=== PATIENT | male | born 1985 | race Caucasian/White ===

== ENCOUNTER 2017-09-28 12:45 | Emergency (ER) | payer MEDICAID, SELFPAY ==
[2017-09-28 12:46] VITALS: BP 135/99; PULSE 119; RESP 18; TEMP 36.4; O2SAT 95; BMI 25.4
--- NOTE | 2017-09-28 12:52 | ED.VISSUMM ---
- ER Visit Summary Date of Service: 09/28/17 Chief Complaint: Finger laceration History of Present Illness: The patient is a 32 M presents to the emergency department with right index finger laceration. Patient was fishing and using a filet knife to clean the fish. He cut his index finger. He states he had immediate pain and bleeding. He describes some tingling in the tip of his finger. His tetanus was within the past 7 years. He is not on anticoagulants. He denies other injury. The patient is otherwise healthy. Physical Examination: Patient is a 2 cm C-type laceration on the palmar aspect of the mid phalanges of the second finger. Cap refill is less than 2 seconds. Flexor superficialis and flexor profundus are intact. Two-point discrimination is preserved. Rest of exam is unremarkable. Test Results: [] Emergency Department Course and Treatment: The patient actually gave more history. He states he was throwing up a machete in trying to catch it and that is what incised his finger. He underwent digital block. I did obtain plain films and there is no evidence of bony involvement. The wound was explored in a bloodless field. There is no evidence of tenderness laceration. It was closed with simple interrupted suture. The patient tolerated this without issue. [facility], counseled on wound care and reasons to return, will be discharged to have sutures out in 7-10 days. Treatment Plan: [] Disposition: Discharge Impression:. Right index finger laceration This note was generated with [employer] dictation software. It may contain incorrect words, spelling, and punctuation that were not noted in review of the chart prior to signing ED Disposition - Plan for ED Patient: Chief Complaint: Laceration Instructions: ED Laceration Hand Referrals: Care Physician,No Primary [Primary Care Provider] - 7 Days for suture removal
--- NOTE | 2017-09-28 13:02 | RAD_ITS ---
STUDY: X-RAY - RIGHT HAND REASON FOR EXAM: Male, 32 years old. Second digit laceration TECHNIQUE: 3 view(s) of the hand. COMPARISON: None. FINDINGS: No definite evidence for acute fractures or dislocation. Small laceration of the mid aspect of the second digit suspected IMPRESSION: No definite evidence for acute fractures. Electronically Signed: Teo William, at 13:35 EDT Tel , Service support , RAD/Hand Min 3 Views
[2017-09-28] MEDS: Bupivacaine Mpf 0.5% 30 ML VIAL INFILT (13:05)
== END 2017-09-28 14:04 | disposition home or self-care (01) ==
PROVIDERS: Emergency Provider Emergency Medicine
DX: S61.210A Laceration without foreign body of right index finger without damage to nail, initial encounter (principal); W26.0XXA Contact with knife, initial encounter; Y93.89 Activity, other specified; Y92.828 Other wilderness area as the place of occurrence of the external cause; Y99.8 Other external cause status; Z72.0 Tobacco use
CPT/HCPCS: 12001; 73130; 99284